=== PATIENT | male | born 1990 | race Caucasian/White ===

== ENCOUNTER 2017-04-26 14:31 | Emergency (ER) | payer BC ==
[~2017-04-26] VITALS: Ht 170.2 cm; Wt 74.8 kg
--- NOTE | ~2017-04-26 | EKG ---
[address] [address] ELECTROCARDIOGRAM REPORT Name: SONALI ANNE JUAN CARLOS [id number] Admission: 04/26/17 Attend Phys: Discharge: 04/26/17 Date of : 89 Report #: [id number] THIS REPORT FOR: //name// [facility] ED Test Date: 2017-04-26 Test Time: 14:40:01 Pat Name: SONALI ANNE Department: Room: Gender: M Blender: RE : 1990 Requested By: Sandi Baird Order Number: [id number] MD: Kofi Painting Measurements Intervals Dixon Rate: 104 P: 61 NM: 136 QRS: 39 QRSD: 80 T: 58 QT: 321 QTc: 423 Interpretive Statements Sinus tachycardia Left atrial enlargement No previous ECG available for comparison Electronically Signed On 04-27-2017 22:52:48 CDT by Kofi Painting [email or web address] <ELECTRONICALLY SIGNED> By: Kofi Painting MD 04/27/17 2252 1440 1440 Kofi Painting MD /AARON
[~2017-04-26 14:31] MED LIST: CARAFATE 1 GM TA1 G1 PO; PEPCID20 MG PO; PHENERGAN 25 MG25 M1 PO
[2017-04-26 15:04] LABS: ABSOLUTE NEUTROPHILS 4.7 thou/uL (1.4-8.2); BASOPHILS 0.8 % (0.0-2.0); EOSINOPHILS 2.1 % (0.0-3.0); HEMATOCRIT 42.8 % (42.0-52.0); HEMOGLOBIN 14.9 gm/dL (14.0-18.0); LYMPHOCYTES 44.2 % (24.0-44.0); MCH 30.6 pg (26.0-34.0); MCHC 34.9 g/dL (28.0-37.0); MCV 87.8 fL (80.0-100.0); MONOCYTES 7.3 % (1.0-8.0); PLATELET COUNT 276 thou/uL (150-400); POLYS 45.6 % (36.0-66.0); RBC 4.87 mil/uL (4.50-6.00); RDW 14.1 % (10.5-14.5); WBC 10.4 thou/uL (4.0-11.0)
[2017-04-26 15:07] LABS: MANUAL DIFF NO
[2017-04-26 15:14] LABS: ANION GAP 9 mmol/L (7-16); BUN 10 mg/dL (7-18); CALCIUM 8.8 mg/dL (8.5-10.1); CHLORIDE 105 mmol/L (98-107); CO2 29 mmol/L (21-32); GLUCOSE 117 mg/dL (74-106); POTASSIUM 3.4 mmol/L (3.5-5.1); SODIUM 143 mmol/L (136-145)
[2017-04-26] MEDS ORDERED: ZYRTEC-D TABLE1 EAC1 PO (15:17)
[2017-04-26 15:20] LABS: ALKALINE PHOSPHATASE 51 U/L (46-116); SGOT 17 U/L (15-37); SGPT 23 U/L (30-65); TOTAL BILIRUBIN 0.3 mg/dL (<0.1-1.0); TOTAL PROTEIN 7.1 g/dL (6.4-8.2); TROPONIN-I < 0.04 ng/mL (<0.04-0.07)
[2017-04-26] MEDS ORDERED: NAPROSYN500 MG PO (15:38)
[2017-04-26 16:07] VITALS: BP 112/65
== END 2017-04-26 15:40 | disposition home or self-care (01) ==
LOC: ER 14:31
PROVIDERS: Nurse Practitioner Family
DX: R09.1 Pleurisy (principal); F41.9 Anxiety disorder, unspecified; F17.210 Nicotine dependence, cigarettes, uncomplicated; F10.99 Alcohol use, unspecified with unspecified alcohol-induced disorder